=== PATIENT | female | born 1940 | race Caucasian/White ===

== ENCOUNTER 2017-10-04 09:17 | Day surgery (SDC) | payer MEDICARE, BC ==
[2017-10-01 10:40] VITALS: BMI 40.6
[~2017-10-04 09:17] MED LIST: CLINDAMYCIN 600 MG in DEXTROSE 5% IN WATER 50 ML IVPB ONE; DEXAMETHASONE SOD PHOSPHATE 4 MG/ML 1 ML VIAL IV ONE; FAMOTIDINE 20 MG/2 ML VIAL IV ONE; LACTATED RINGERS 1,000 ML IV SCH; ONDANSETRON 4 MG/2 ML VIAL IVP ONE; fentaNYL (PF) 50 MCG/ML 2 ML AMP IV PRN
[2017-10-04] MEDS: OXYMETAZOLINE 0.05% NASL SPRAY 1 SPRAY BOTTLE NASAL ONE ×5 (09:57→10:25)
[2017-10-04 10:05] VITALS: BP 139/85; PULSE 75; RESP 24; TEMP 97.5
[2017-10-04] MEDS ORDERED: methylPREDNISolone ACETATE 80 MG/ML 1 ML VIAL IM STA (11:08)
--- NOTE | 2017-10-04 11:32 | P.CNPUL ---
History of Present Illness Consult date: 10/04/17 Reason for consult: dyspnea, cough, asthma Chief complaint: Shortness of breath History of present illness: Cause of the 10/04/2017. This is a very pleasant 77-year-old female who sees a nurse practitioner with the [facility] area. She also sees my partner periodically for her asthma. She was in the hospital today to have a sinus surgery done by the ENT doctor. Anesthesiologist was concerned about further surgery started because the patient has been having shortness of breath for some time. His been going on for at least a couple weeks and maybe even longer. The patient apparently was treated with some steroids and antibiotics by her primary caregiver. She was still having shortness of breath. Her primary complaints of cough without phlegm shortness of breath. In addition, she had wheezing. The Question for Me Was Whether or Not the Patient Should Have Surgery Today. The Patient Was Seen in the Preop Area. I Interviewed the Patient and Examined the Patient. After evaluation, it was felt by me that the patient should not have surgery today rather she should follow up with my partner in the office next week. In addition, we gave her Depo-Medrol 80 mg IM and a Z-Xavier to start today. Review of Systems A 12 point review of system is positive for shortness of breath cough without phlegm production and wheezing. These complaints have been going on for some time and she recently saw her primary caregiver gave her steroids and antibiotics with only minimal improvement. Past Medical History Past Medical History: Asthma, GERD/Reflux, Hypertension, Mitral Valve Prolapse ( MVP), Sleep Apnea/CPAP/BIPAP Additional Past Medical History / Comment(s): PT STATES HAS LEAKING VALVE AND HEART MURMUR; CPAP MACHINE; DIVERTICULOSIS History of Any Multi-Drug Resistant Organisms: None Reported Past Surgical History: Appendectomy, Cholecystectomy, Hernia Repair, Hysterectomy Additional Past Surgical History / Comment(s): KIDNEY STONE, EAR SURGERY, EMERALD Past Anesthesia/Blood Transfusion Reactions: Motion Sickness Smoking Status: Former smoker - Past Family History Sister(s) Family Medical History: Cancer Additional Family Medical History / Comment(s): BREAST CA Brother(s) Family Medical History: Cancer Additional Family Medical History / Comment(s): NON HODGEKIN'S LYMPHOMA Medications and Allergies Home Medications Medication Instructions Recorded Confirmed Type Citalopram Hydrobromide [CeleXA] 40 mg PO QAM 06/25/14 10/04/17 History Losartan [Cozaar] 100 mg PO QAM 06/25/14 10/04/17 History Metoprolol Tartrate [Lopressor] 12.5 mg PO BID 06/25/14 10/04/17 History Ibuprofen [Motrin] 400 mg PO Q6HR PRN 10/08/14 10/04/17 History ALPRAZolam [Xanax] 0.5 mg PO Q8HR PRN 10/01/17 10/04/17 History Alendronate Sodium/Vitamin D3 1 each PO Q7DAYS 10/01/17 10/04/17 History [Fosamax Plus D 70 mg-2,800 Iu] Cetirizine HCl [Zyrtec] 10 mg PO DAILY 10/01/17 10/04/17 History Cyanocobalamin (Vitamin B-12) 5,000 mcg PO DAILY 10/01/17 10/04/17 History [Vitamin B12] Desloratadine [Clarinex] 5 mg PO DAILY 10/01/17 10/04/17 History Fish Oil/Dha/Epa [Fish Oil 1,200 1 each PO DAILY 10/01/17 10/04/17 History mg Fish Oil] Fluticasone Nasal [place] [Flonase 1 spray EA NOSTRIL DAILY 10/01/17 10/04/17 History Nasal [place]] Fluticasone/Salmeterol [Advair 1 inhalation PO BID 10/01/17 10/04/17 History 500-50 Diskus] Montelukast [Singulair] 10 mg PO DAILY 10/01/17 10/04/17 History Pantoprazole Sodium [Protonix] 40 mg PO DAILY 10/01/17 10/04/17 History amLODIPine [Norvasc] 10 mg PO DAILY 10/01/17 10/04/17 History Allergies Allergy/AdvReac Type Severity Reaction Status Date / Time Penicillins Allergy Severe Rash/Hives Verified 10/04/17 09:56 cephalexin monohydrate Allergy Rash/Hives Verified 10/04/17 09:56 [From Keflex] enalapril Allergy Rash/Hives Verified 10/04/17 09:56 fexofenadine HCl Allergy Rash/Hives Verified 10/04/17 09:56 [From Bisi] hydrocodone Allergy Rash/Hives Verified 10/04/17 09:56 sulfamethoxazole Allergy Rash/Hives Verified 10/04/17 09:56 [From Bactrim] trimethoprim [From Bactrim] Allergy Rash/Hives Verified 10/04/17 09:56 Physical Exam Vitals: Vital Signs Temp Pulse Resp BP Pulse Ox 10/04/17 10:04 97.5 F L 75 24 139/85 96 GENERAL EXAM: Alert, active, comfortable in no apparent distress. HEAD: Normocephalic. EYES: Normal reaction of pupils, equal size. NOSE: Clear with pink turbinates. THROAT: No erythema or exudates. NECK: No masses, no JVD. CHEST: No chest wall deformity. LUNGS: Lung examination reveals some rhonchi. Breath sounds are diminished. The patient does have some prolongation. No crackles. A few scattered high- pitched wheezes. CVS: S1 and S2 normal with no audible murmur, regular rhythm. ABDOMEN: No hepatosplenomegaly, normal bowel sounds, no guarding or rigidity. SPINE: No scoliosis or deformity SKIN: No rashes CENTRAL NERVOUS SYSTEM: No focal deficits, tone is normal in all 4 extremities. EXTREMITIES: There is no peripheral edema. No clubbing, no cyanosis. Peripheral pulses are intact. Assessment and Plan Assessment: Assessment Asthma, inactive at this time History of chronic sinus disease anticipated sinus surgery History of acid reflux disease History of arthritis Previous history of pneumonia History of depression and anxiety History of migraine cephalgia History of hypertension History of irritable bowel syndrome Plan: Plan dated 10/04/2017 The patient's was canceled. She'll be given a Z-Xavier to start today. She'll complete continue her current medications. In addition, the nurse in the preop area will give her Depo-Medrol 80 mg IM. Finally, we'll have her see my partner next week in the clinic to make sure that she is stable and cleared for surgery. I did speak to the ENT doctor he had no problem and canceling the surgery. Time with Patient: Greater than 30
== END 2017-10-04 11:42 | disposition home or self-care (01) ==
LOC: OR 09:17
PROVIDERS: ATTEND Otolaryngology
DX: J45.909 Unspecified asthma, uncomplicated (principal); Z53.8 Procedure and treatment not carried out for other reasons; H69.90 Unspecified Eustachian tube disorder, unspecified ear; E11.9 Type 2 diabetes mellitus without complications; R42 Dizziness and giddiness; I10 Essential (primary) hypertension; E66.9 Obesity, unspecified; Z68.41 Body mass index [BMI] 40.0-44.9, adult; J32.4 Chronic pansinusitis; H70.90 Unspecified mastoiditis, unspecified ear; J34.2 Deviated nasal septum; M47.812 Spondylosis without myelopathy or radiculopathy, cervical region; K21.9 Gastro-esophageal reflux disease without esophagitis; F32.9 Major depressive disorder, single episode, unspecified; F41.9 Anxiety disorder, unspecified; G43.909 Migraine, unspecified, not intractable, without status migrainosus; H91.90 Unspecified hearing loss, unspecified ear; K58.9 Irritable bowel syndrome, unspecified; N28.9 Disorder of kidney and ureter, unspecified; I34.1 Nonrheumatic mitral (valve) prolapse; M81.0 Age-related osteoporosis without current pathological fracture; Z87.01 Personal history of pneumonia (recurrent); G47.30 Sleep apnea, unspecified; Z99.89 Dependence on other enabling machines and devices; Z79.2 Long term (current) use of antibiotics; Z79.51 Long term (current) use of inhaled steroids; Z79.52 Long term (current) use of systemic steroids; Z79.899 Other long term (current) drug therapy; Z88.1 Allergy status to other antibiotic agents; Z91.011 Allergy to milk products; Z88.0 Allergy status to penicillin; Z88.2 Allergy status to sulfonamides; Z88.8 Allergy status to other drugs, medicaments and biological substances; Z88.5 Allergy status to narcotic agent; Z91.09 Other allergy status, other than to drugs and biological substances; Z87.891 Personal history of nicotine dependence
CPT/HCPCS: J1040; J1100; J2405

== ENCOUNTER → 2017-10-10 | Outpatient (CLI) | payer MEDICARE, BC ==
[2017-10-10 11:30] LABS: Basophils # (A) 0.1 k/uL (0-0.2); Basophils % (A) 1 %; Eosinophils # (A) 0.4 k/uL (0-0.7); Eosinophils % (A) 4 %; HCT 43.7 % (34.0-46.0); HGB 14.6 gm/dL (11.4-16.0); Lymphocytes # (A) 2.3 k/uL (1.0-4.8); Lymphocytes % (A) 21 %; MCH 28.5 pg (25.0-35.0); MCHC 33.3 g/dL (31.0-37.0); MCV 85.5 fL (80.0-100.0); Mean Platelet Volume 6.5; Monocytes # (A) 0.5 k/uL (0-1.0); Monocytes % (A) 5 %; Neutrophils # (A) 7.2 k/uL (1.3-7.7); Neutrophils % (A) 68 %; Platelet Count 238 k/uL (150-450); RBC 5.12 m/uL (3.80-5.40); RDW 14.6 % (11.5-15.5); WBC 10.6 k/uL (3.8-10.6)
[2017-10-10 11:56] LABS: Albumin 4.1 g/dL (3.5-5.0); Potassium 4.1 mmol/L (3.5-5.1); Total Bilirubin 1.6 mg/dL (0.2-1.3)
[2017-10-10 12:02] LABS: T4, Free (Free Thyroxine) 1.13 ng/dL (0.78-2.19)
[2017-10-10 14:08] LABS: Erythrocyte Sedimentation Rate 21 mm/hr (0-20)
== END | disposition home or self-care (01) ==
LOC: LABWHC1 11:05
PROVIDERS: ATTEND Internal Medicine
DX: R53.1 Weakness (principal); R06.02 Shortness of breath
CPT/HCPCS: 36415; 80053; 84439; 84443; 85025; 85379; 85652

== ENCOUNTER 2017-12-13 11:40 | Day surgery (SDC) | payer MEDICARE, BC ==
[2017-12-10 14:59] VITALS: BMI 40.4
[~2017-12-13 11:40] MED LIST changes: +DEXAMETHASONE SOD PHOSPHATE 10 MG/ML 1 ML VIAL IV ONE; -LACTATED RINGERS 1,000 ML IV SCH; +ONDANSETRON ODT 4 MG TAB PO ONE; -fentaNYL (PF) 50 MCG/ML 2 ML AMP IV PRN
[2017-12-13 13:01] VITALS: RESP 16
[2017-12-13] MEDS: OXYMETAZOLINE 0.05% NASL SPRAY 1 SPRAY BOTTLE NASAL ONE ×5 (13:03→13:26)
[2017-12-13] MEDS: LACTATED RINGERS 1,000 ML IV SCH ×2 (13:10→17:21)
[2017-12-13] MEDS ORDERED: LIDOCAINE 1% 20 ML VIAL (10MG/ML) FOR IV START INTRADERMA ONE (13:13)
[2017-12-13] MEDS ORDERED: PROPOFOL 10 MG/ML 20 ML VIAL IV ONE (13:45)
[2017-12-13] MEDS ORDERED: DEXAMETHASONE SOD PHOS (MDV) 100 MG/10 ML VIAL ONE (13:45)
[2017-12-13] MEDS ORDERED: SUCCINYLCHOLINE CHLORIDE 100 MG/5 ML SYR IV ONE (13:45)
[2017-12-13] MEDS ORDERED: LIDOCAINE 1% INJ 10MG/ML (20 ML MDV) ONE (13:45)
[2017-12-13] MEDS ORDERED: LACTATED RINGERS 1,000 ML IV ONE (13:45)
[2017-12-13] MEDS ORDERED: MIDAZOLAM 2 MG/2 ML VIAL ONE (13:45)
[2017-12-13] MEDS ORDERED: fentaNYL (PF) 50 MCG/ML 2 ML AMP ONE (13:45)
[2017-12-13] MEDS ORDERED: CIPROFLOXACIN-DEXAMETH 0.3-0.1% DROPS 7.5 ML BTL BOTH EARS ONE ×2 (14:03→14:08)
[2017-12-13] MEDS ORDERED: EPINEPHrine 1 MG/ML (MDV) 30 ML VIAL TOPICAL ONE ×3 (14:04→14:31)
[2017-12-13] MEDS ORDERED: FLUORESCEIN STRIPS 1 MG STRIP MISCELLANE ONE ×2 (14:04→14:30)
[2017-12-13] MEDS ORDERED: LIDOCAINE 1%-EPI 1:100,000 20 ML VIAL SQ ONE ×2 (14:04→14:30)
[2017-12-13 14:58] VITALS: TEMP 97.2
[2017-12-13] MEDS: MORPHINE SULFATE 4 MG/ML SYRINGE IV PRN ×4 (15:11→15:31)
--- NOTE | 2017-12-13 15:19 | P.OP ---
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 Failed medical therapy and sx treatment recommended. Operative Findings: Bilateral middle ear effusion, chronic pansinusitis with mycetoma and polyposis Description of Procedure: This patient was taken to the operative room and placed in the supine position. A general inhalation anesthetic was administered to the patient by the department of anesthesia with a functioning IV line in place. The patient was monitored throughout the entire case by the department of anesthesia. The eyes were taped shut for protection. The patient was placed in a slight reverse Trendelenburg position. The patient had previously utilize Afrin nasal spray preoperatively. The nose was evaluated and the septum lateral nasal wall and inferior turbinates were injected with lidocaine 1% with epinephrine 1 100,000 bilaterally. Approximately 10 minutes were allowed wait for full vasoconstrictive effects to take place. We then entered the nose with a 0 and 30 Harper juliette endoscope. Previous to this we did inject the lateral nasal wall and middle turbinate and uncinate process with lidocaine 1% with epinephrine 1 100,000. Approximately 10 minutes were allowed wait for full vasoconstrictive effects to take place. Intranasal polyps were noted. They were noted bilaterally. The intranasal polyps were removed with use of a microdebrider. With use of a microdebrider and a pediatric backbiter, we took down the uncinate process bilaterally. We then opened the maxillary sinuses bilaterally. MYCETOMA REMOVED RIGHT SIDE. We utilized a microdebrider for this and entered the maxillary sinuses and removed diseased tissue and polypoid tissue. This was done bilaterally. After the maxillary sinuses were opened and the diseased tissue and polyps were removed we entered the ethmoid bulla and with use of a microdebrider and up-biting Rosio, we remove the anterior septations and remove diseased tissue from the anterior ethmoids with direct visualization. We then followed the fovea frontalis through the basal lamella and into the posterior ethmoid air cells and did a total ethmoidectomy with removal of polypoid material. Once the ethmoids cells were all taken down we then entered the sphenoid sinus medially and inferiorly underneath the inferior attachment of the superior turbinate. The sphenoid sinus was opened entered and diseased tissue and polyps were removed bilaterally. This was done with a microdebrider and [place]. We then entered the frontal sinuses with a giraffe and up-biting Blakesley entered on the agar nasi cells. We open the frontal sinuses and removed sinus tissue and polypoid tissue that was diseased. We explored the frontal sinuses bilaterally. To summarize all sinuses were open all sinuses were explored and we remove diseased tissue and polyps from the sphenoid maxillary and frontal sinuses. Polyps were removed from the nose. Ethmoid sinuses were opened totally. Nasal pore was inserted and minimal bleeding was encountered. We reinspected the skull base there is no signs of any orbital penetration or signs of any intracranial penetration. The sugical site was reinspected after the XEROGEL AND PROPEL AND CONTOUR was placed and no bleeding was seen. Both tympanic membranes were visualized with an operating Zeiss microscope. Cerumen and epithelial debris was removed from the external auditory canals bilaterally. The tympanic membranes were visualized under an operative microscope. Tympanostomy incisions were made inferiorly. Fluid was suctioned from the middle ear space with use of a #3 and #5 Lee suction with care to avoid any trauma to the middle ear structures. Ventilation tubes were then inserted bilaterally. Excellent placement was obtained.
[2017-12-13 17:56] VITALS: BP 108/67; PULSE 70
== END 2017-12-13 18:45 | disposition home or self-care (01) ==
LOC: OR 11:40
PROVIDERS: ATTEND Otolaryngology
DX: J32.4 Chronic pansinusitis (principal); B47.9 Mycetoma, unspecified; H70.13 Chronic mastoiditis, bilateral; J33.8 Other polyp of sinus; H65.93 Unspecified nonsuppurative otitis media, bilateral; K21.9 Gastro-esophageal reflux disease without esophagitis; M19.90 Unspecified osteoarthritis, unspecified site; J44.9 Chronic obstructive pulmonary disease, unspecified; F32.9 Major depressive disorder, single episode, unspecified; I10 Essential (primary) hypertension; K58.9 Irritable bowel syndrome, unspecified; G47.33 Obstructive sleep apnea (adult) (pediatric); Z99.89 Dependence on other enabling machines and devices; F41.9 Anxiety disorder, unspecified; I12.9 Hypertensive chronic kidney disease with stage 1 through stage 4 chronic kidney disease, or unspecified chronic kidney disease; N18.9 Chronic kidney disease, unspecified; Z87.891 Personal history of nicotine dependence; E66.9 Obesity, unspecified; Z68.41 Body mass index [BMI] 40.0-44.9, adult; M81.0 Age-related osteoporosis without current pathological fracture; Z79.2 Long term (current) use of antibiotics; Z79.1 Long term (current) use of non-steroidal anti-inflammatories (NSAID); Z79.51 Long term (current) use of inhaled steroids; Z79.52 Long term (current) use of systemic steroids; Z79.899 Other long term (current) drug therapy; Z88.1 Allergy status to other antibiotic agents; Z88.5 Allergy status to narcotic agent; Z88.0 Allergy status to penicillin; Z88.2 Allergy status to sulfonamides; Z88.8 Allergy status to other drugs, medicaments and biological substances; Z91.09 Other allergy status, other than to drugs and biological substances; I34.1 Nonrheumatic mitral (valve) prolapse
CPT/HCPCS: 31267; 31259; 31253; 69436; C2625 ×2; J0171; J2250; J2270; J1100 ×2; J2405; J2001; J3010; J0330; J2704; 88305

== ENCOUNTER 2023-10-29 05:38 | Day surgery (SDC) | payer MEDICARE, BC ==
[2023-10-25 11:32] VITALS: BMI 35.3
[2023-10-29] MEDS ORDERED: ALPRAZolam 0.25 MG TAB PO PRN (05:58)
[2023-10-29] MEDS ORDERED: NITROGLYCERIN SL TABS 0.4 MG TAB SUBLINGUAL PRN (05:58)
[2023-10-29] MEDS ORDERED: HEPARIN SODIUM,PORCINE 10,000 UNIT in SODIUM CHLORIDE 0.9% 1,000 ML IRRIGATION PRN (05:58)
[2023-10-29] MEDS ORDERED: HEPARIN SODIUM,PORCINE (1 ML) 2,500 UNIT in SODIUM CHLORIDE 0.9% 250 ML IRRIGATION PRN (05:58)
[2023-10-29] MEDS ORDERED: ALPRAZolam 0.5 MG TAB PO PRN (05:58)
[2023-10-29] MEDS: SODIUM CHLORIDE 0.9% 1,000 ML IV ONE (06:19)
[2023-10-29 06:40] LABS: Basophils # (A) 0.1 k/uL (0-0.2); Basophils % (A) 1 %; Eosinophils # (A) 0.2 k/uL (0-0.7); Eosinophils % (A) 2 %; HGB 12.8 gm/dL (11.4-16.0); Lymphocytes # (A) 1.7 k/uL (1.0-4.8); Lymphocytes % (A) 17 %; MCH 28.7 pg (25.0-35.0); MCHC 32.7 g/dL (31.0-37.0); MCV 87.7 fL (80.0-100.0); Mean Platelet Volume 7.6; Monocytes # (A) 0.6 k/uL (0-1.0); Monocytes % (A) 5 %; Neutrophils # (A) 7.8 k/uL (1.3-7.7); Neutrophils % (A) 75 %; Platelet Count 241 k/uL (150-450); RBC 4.45 m/uL (3.80-5.40); RDW 13.4 % (11.5-15.5); WBC 10.4 k/uL (3.8-10.6)
[2023-10-29 06:51] LABS: African American GFR (CKD) 83 (>60 ml/min/1.73 sqM); Anion Gap 10 mmol/L; Blood Urea Nitrogen 16 mg/dL (7-17); Calcium 9.4 mg/dL (8.4-10.2); Carbon Dioxide 20 mmol/L (22-30); Chloride 105 mmol/L (98-107); Glucose 112 mg/dL (74-99); Non-African American GFR(CKD) 72 (>60 ml/min/1.73 sqM); Sodium 135 mmol/L (137-145)
[2023-10-29 06:53] LABS: Potassium 4.2 mmol/L (3.5-5.1)
[2023-10-29] MEDS ORDERED: LIDOCAINE 1% INJ 10MG/ML (20 ML MDV) ONE (07:13)
[2023-10-29] MEDS ORDERED: HEPARIN SODIUM 1,000 UN/ML (10ML VL) ONE (07:13)
[2023-10-29] MEDS ORDERED: fentaNYL (PF) 50 MCG/ML 2 ML AMP ONE (07:14)
[2023-10-29] MEDS ORDERED: VERAPAMIL 2.5 MG/ML 2 ML AMP ONE (07:14)
[2023-10-29 07:15] VITALS: TEMP 97.6
[2023-10-29] MEDS: BENZOCAINE SPRAY 1 CAN TOPICAL ONE (07:52)
[2023-10-29] MEDS: MIDAZOLAM 2 MG/2 ML VIAL IVP ONE (07:57)
[2023-10-29] MEDS: fentaNYL (PF) 50 MCG/ML 2 ML AMP IVP ONE (07:57)
--- NOTE | 2023-10-29 08:37 | CC ---
CARDIAC CATHETERIZATION REPORT PROCEDURE PERFORMED: Transesophageal echo. INDICATIONS: Mitral regurgitation. Yoselin is an 83-year-old lady who presented to me with symptoms of progressively worsening shortness of breath. She had a 2D echo as outpatient that revealed moderate to severe mitral regurgitation with normal LV systolic function. She was advised to undergo transesophageal echo to rule out severe mitral regurgitation. The patient had a cardiac catheterization in 2014, because of shortness of breath that revealed normal coronary arteries. The blood pressure had been poorly controlled. PROCEDURE NOTE: After obtaining informed consent, transesophageal echocardiogram is performed in left lateral position using an Omniplane probe. Local and IV sedation were obtained using Xylocaine spray, 2 mg of Versed, and 25 mcg of fentanyl. The patient tolerated the procedure well without any obvious immediate complications. FINDINGS: 1. Mitral valve shows no sign of calcification with moderate central mitral regurgitation. Left atrium appears mildly enlarged. Right atrium and right ventricle seen within normal limits. Tricuspid valve appears normal. There is mild tricuspid regurgitation noted. Aortic valve is a 3-leaflet valve. There is mild aortic regurgitation noted. Ascending aorta appears aneurysmally dilated measuring 4.1 cm. 2. Interatrial septum, there is no evidence of [id number] shunt by color-flow Doppler or [id number] shunt by agitated saline contrast study. 3. Left ventricle has normal size and systolic function. CONCLUSIONS: 1. Moderate central mitral regurgitation. 2. Ascending aortic aneurysm measuring 4.1 cm. 3. Normal LV systolic function. 4. No evidence of atrial septal defect. PLAN: I reviewed EMERALD information with the patient and told her that her symptoms may be related to poorly controlled blood pressure, poor physical fitness, and moderate obesity. I am going to add amlodipine 10 mg daily to her current medical regimen. MMODL / IJN: [id number] /
[2023-10-29] MEDS: ASPIRIN 325 MG TAB PO STA (08:57)
[2023-10-29] MEDS: amLODIPine 10 MG TAB PO SCH (08:57)
[2023-10-29] MEDS: SODIUM CHLORIDE 0.9% 1,000 ML in EMPTY BAG 1 BAG IV SCH (08:57)
[2023-10-29 09:05] VITALS: RESP 16
[2023-10-29 10:18] VITALS: BP 138/70; PULSE 94
== END 2023-10-29 09:59 | disposition home or self-care (01) ==
LOC: CATHCVL 05:38
PROVIDERS: ATTEND Internal Medicine Cardiovascular Disease
DX: I08.3 Combined rheumatic disorders of mitral, aortic and tricuspid valves (principal); I10 Essential (primary) hypertension; Z87.891 Personal history of nicotine dependence; Z88.0 Allergy status to penicillin; Z88.2 Allergy status to sulfonamides; Z88.1 Allergy status to other antibiotic agents; Z88.5 Allergy status to narcotic agent; Z88.8 Allergy status to other drugs, medicaments and biological substances; Z79.82 Long term (current) use of aspirin; Z79.899 Other long term (current) drug therapy
CPT/HCPCS: 93312; 93320; 93325; 80048; 85025; J2250; J3010